=== PATIENT | male | born 1965 | race Two or more races ===

== ENCOUNTER 2023-11-01 03:44 | Emergency (ER) | payer OTHER ==
[2023-11-01 03:49] VITALS: BP 160/74; PULSE 82; RESP 19; TEMP 97.8; BMI 27.3
[2023-11-01] MEDS ORDERED: predniSONE 20 MG TABLET (UD) ONE (04:18)
[2023-11-01] MEDS ORDERED: predniSONE 10 MG TABLET (UD) ONE (04:18)
[2023-11-01] MEDS ORDERED: diphenhydrAMINE HCL 25 MG CAPSULE (FP) PO ONE (04:18)
[2023-11-01] MEDS ORDERED: FAMOTIDINE 20 MG TABLET ONE ×2 (04:18→04:19)
[2023-11-01] MEDS: FAMOTIDINE 20 MG TABLET PO ONE (04:24)
[2023-11-01] MEDS: predniSONE 20 MG TABLET (UD) PO ONE (04:24)
[2023-11-01] MEDS: diphenhydrAMINE HCL 25 MG CAPSULE (FP) PO ONE (04:24)
== END 2023-11-01 05:00 | disposition home or self-care (01) ==
LOC: JER 03:44
DX: R21 Rash and other nonspecific skin eruption (principal)
CPT/HCPCS: 99283-25

== ENCOUNTER 2023-12-07 00:29 | Emergency (ER) | payer OTHER ==
[2023-12-07 00:35] VITALS: BP 146/76; PULSE 75; BMI 27.3
[2023-12-07 00:37] VITALS: TEMP 98.1
[2023-12-07 00:40] VITALS: RESP 16
== END 2023-12-07 04:08 | disposition home or self-care (01) ==
LOC: JER 00:29
DX: M25.531 Pain in right wrist (principal); M25.521 Pain in right elbow; Y04.8XXA Assault by other bodily force, initial encounter
CPT/HCPCS: 73070-TC-RT-FY; 73110-TC-RT-FY; 73130-TC-RT-FY; 99283-25